=== PATIENT | female | born 1955 | race Caucasian/White ===

== ENCOUNTER 2017-08-25 06:07 | Day surgery (SDC) | payer BC ==
[~2017-08-25 06:07] MED LIST: BUFFERIN LOW81 MG PO; LISINOPRIL20 MG PO; MIRALAX3350 NF PO; PROBIOTI3 PO; VITAMIN D PO
[2017-08-25] MEDS ORDERED: VITAMIN D PO (06:19)
[2017-08-25 08:37] VITALS: BP 125/75
== END 2017-08-25 09:05 | disposition home or self-care (01) | DRG 392 ==
LOC: ENDO 06:07 → ORM 08:15 → ENDO 08:15
PROVIDERS: ATTEND Surgery
PROC: 0DJD8ZZ Inspection of Lower Intestinal Tract, Via Natural or Artificial Opening Endoscopic (ICD-10-PCS; principal; 2017-08-25)
DX: K57.30 Diverticulosis of large intestine without perforation or abscess without bleeding (principal); Q43.8 Other specified congenital malformations of intestine; R10.30 Lower abdominal pain, unspecified; K64.8 Other hemorrhoids